=== PATIENT | female | born 1945 | race African-American/Black ===

== ENCOUNTER 2018-01-16 08:35 | Emergency (ER) | payer MEDICAID, MEDICARE, OTHER ==
[~2018-01-16] VITALS: Ht 167.6 cm; Wt 68.5 kg
[~2018-01-16 08:35] MED LIST: ACYCLOVIR400 MG ORAL; AMLODIPINE BESY10 MG PO; ASPIRIN EC81 MG PO; COREG25 MG PO; IMDUR60 MG PO; LIPITOR20 MG PO; LISINOPRIL10 MG PO; LOMOTIL TABLET1 EAC1 PO; NAPROXEN250 M1 PO; NORCO 5-325 TA1 EAC1 ORAL; OMEPRAZOLE20 M2 ORAL; SPIRIVA INHALE1 PUFF INH; SPIRIVA18 MCG INH; VENTOLIN HFA18 GM INH; ZOFRAN ODT4 MG ORAL
[2018-01-16 08:57] VITALS: BP 134/70
--- NOTE | 2018-01-16 09:13 | Emergency Room Report ---
History of Present Illness General Chief Complaint: Wound Recheck/Suture Removal Source: Patient, Medical Record Present Illness HPI Patient presents with follow-up of her right knee injury Patient reports that she had an injury approximately 2 weeks ago Was seen at [facility] Has been seen by her primary physician There was a small area that was still not fully healing And patient presents for further evaluation She reports clear discharge Denies any redness denies any pain with touch Patient is applying peroxide and Betadine on a daily basis Allergies: Coded Allergies: No Known Allergies (Unverified , 07/13/12) Patient History Past Medical History: see triage record Pertinent Family History: none Reviewed Nursing Documentation: PMH: Agreed; PSxH: Agreed Nursing Documentation-PMH Past Medical History: No History, Except For Hx Cardiac Problems: Yes - enlarged heart, high cholesterol Hx Hypertension: Yes Hx Pacemaker: No Hx COPD: Yes Hx Cancer: No Hx Gastrointestinal Problems: Yes Hx Neurological Problems: Yes Hx Numbness: Yes - L LEFT. DUE TO SLIPPED DISC IN [place] Review of Systems All Other Systems: negative except mentioned in HPI Physical Exam Vital Signs Date Time Temp Pulse Resp B/P (MAP) Pulse Ox O2 Delivery O2 Flow Rate FiO2 01/16/18 08:41 97.7 60 18 134/70 95 Room Air 97.7 Sp02 EP Interpretation: reviewed, normal General Appearance: well appearing, no apparent distress Head: normocephalic, atraumatic Eyes: bilateral eye PERRL, bilateral eye EOMI ENT: normal pharynx, no angioedema Neck: full range of motion, supple Respiratory: lungs clear Cardiovascular #1: regular rate, rhythm Gastrointestinal: non tender, soft Musculoskeletal: other - Evidence of recent injury to the right knee however freely mobile Neurologic: alert, oriented x3, responsive Skin: other - Area of abrasion on the right knee there is scab formation around most of the area approximately 2 x 2 centimeters just at the patellar region there is a small approximately quarter centimeter by quarter centimeter region at the inferior aspect of the scapula formation, that is draining mild clear fluid no fluctuance, Lymphatic: no adenopathy Medical Decision Making Diagnostic Impression: Primary Impression: Non-healing skin lesion ER Course The area in question appears clear at this time no signs of any cellulitis or abscess There is a [place] of nonhealing I feel the patient is applying excessive amounts of peroxide likely preventing the area from fully scabbing and healing patient had dressing applied appropriately and was encouraged to follow up with her primary physician for continued repeat evaluations Last Vital Signs Date Time Temp Pulse Resp B/P (MAP) Pulse Ox O2 Delivery O2 Flow Rate FiO2 01/16/18 08:57 97.7 78 18 134/70 95 Room Air 97.7 Status: improved Disposition: HOME, SELF-CARE Condition: Improved Additional Instructions: Patient is provided with the discharge instructions notified to follow up with primary doctor in the next 2-3 days otherwise return to the er with any worsening symptoms. Please note that this report is being documented using [employer] technology. This can lead to erroneous entry secondary to incorrect interpretation by the dictating instrument. Yonathan Nichols DO January 16, 2018 09:13
[2018-01-16 09:31] VITALS: BP 134/70
== END 2018-01-16 09:37 | disposition home or self-care (01) ==
LOC: EMR 09:15
DX: L98.8 Other specified disorders of the skin and subcutaneous tissue (principal); Z48.01 Encounter for change or removal of surgical wound dressing; I10 Essential (primary) hypertension; J44.9 Chronic obstructive pulmonary disease, unspecified
CPT/HCPCS: 99281

== ENCOUNTER 2018-07-25 10:18 | Emergency (ER) | payer MEDICAID, MEDICARE, OTHER ==
[~2018-07-25] VITALS: Ht 167.6 cm; Wt 68.9 kg
[2018-07-25] MEDS ORDERED: SPIRIVA INHALE1 PUF1 INH (10:27)
--- NOTE | 2018-07-25 10:36 | Emergency Room Report ---
History of Present Illness General Chief Complaint: Abdominal Pain Source: Patient Present Illness HPI Patient presents with complaints of pain to her left lung Reports that she had a recent cold with cough and congestion and runny nose That seemed to improve however she has some lingering discomfort to the left side in the back area Denies any vomiting or diarrhea denies any shortness of breath patient reports that she had some burning sensation in her epigastric area as well denies any fevers denies any pleurisy Symptoms ongoing for the past 2-3 weeks Denies any peripheral neuropathy denies any weakness Allergies: Coded Allergies: No Known Allergies (Unverified , 07/25/18) Patient History Past Medical History: see triage record Pertinent Family History: none Now: No Reviewed Nursing Documentation: PMH: Agreed; PSxH: Agreed Nursing Documentation-PMH Hx Cardiac Problems: Yes - enlarged heart, high cholesterol Hx Hypertension: Yes Hx Pacemaker: No Hx COPD: Yes Hx Cancer: No Hx Gastrointestinal Problems: Yes Hx Neurological Problems: Yes Hx Numbness: Yes - L LEFT. DUE TO SLIPPED DISC IN [place] Review of Systems All Other Systems: negative except mentioned in HPI Physical Exam Vital Signs Date Time Temp Pulse Resp B/P (MAP) Pulse Ox O2 Delivery O2 Flow Rate FiO2 07/25/18 10:22 97.9 58 20 173/88 95 Room Air Sp02 EP Interpretation: reviewed, normal General Appearance: well appearing, no apparent distress Head: normocephalic, atraumatic Eyes: bilateral eye PERRL, bilateral eye EOMI ENT: hearing grossly normal, normal pharynx, TMs + canals normal, uvula midline Neck: full range of motion, supple, no meningismus, no bony tend Respiratory: lungs clear, normal breath sounds, no rhonchi, no respiratory distress, no retraction, no accessory muscle use Cardiovascular #1: normal peripheral pulses, regular rate, rhythm, no edema, no gallop, no JVD, no murmur Gastrointestinal: normal bowel sounds, non tender, soft, no mass, no organomegaly, non-distended, no guarding, no hernia, no pulsatile mass, no rebound Genitourinary: no CVA tenderness Musculoskeletal: normal inspection Neurologic: oriented x3, responsive, 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, motor strength/ tone normal, sensory intact Psychiatric: mood/affect normal Skin: normal color, no rash, warm/dry, palpation normal Lymphatic: normal inspection, no adenopathy Medical Decision Making Diagnostic Impression: Primary Impression: Cough Additional Impression: Chest pain ER Course Patient is a fairly complex patient with multiple differential to consideration including but not limited to cardiac cardiopulmonary and vascular emergencies Patient's blood work and imaging is normal Patient remains hemodynamically stable The acute ideology of her presentation is not clear at this time however patient remains hemodynamically stable and is appropriate for close outpatient follow-up CBC normal Chemistry normal Rhythm Strip Diag. Results EP Interpretation: yes Rate: 66 Rhythm: NSR, no PVC's, no ectopy Chest X-Ray Diagnostic Results Chest X-Ray Diagnostic Results : Chest X-Ray Ordered: Yes # of Views/Limited/Complete: 1 View Indication: Chest Pain EP Interpretation: Yes Interpretation: no consolidation, no effusion, no pneumothorax, no acute cardiopulmonary disease - Previous elevated hemidiaphragm Impression: No acute disease Electronically Signed by: Yonathan Nichols DO Last Vital Signs Date Time Temp Pulse Resp B/P (MAP) Pulse Ox O2 Delivery O2 Flow Rate FiO2 07/25/18 10:22 97.9 58 20 173/88 95 Room Air Status: improved Disposition: HOME, SELF-CARE Condition: Improved Scripts Mag Hydrox/Al Hydrox/Simeth (MAALOX MAXIMUM STRENGTH SUSP) 355 Ml Oral.susp 10 ML PO BID for 7 Days, ML Prov: Yonathan Nichols DO 07/25/18 Additional Instructions: Patient is provided with the discharge instructions notified to follow up with primary doctor in the next 2-3 days otherwise return to the er with any worsening symptoms. Please note that this report is being documented using [employer] technology. This can lead to erroneous entry secondary to incorrect interpretation by the dictating instrument. Yonathan Nichols DO Jul 25, 2018 10:36
[2018-07-25 10:57] VITALS: BP 149/67
[2018-07-25 11:12] LABS: BASOPHILS % (AUTO) 1.1 % (0.0-2.0); EOSINOPHILS % (AUTO) 2.1 % (0.0-3.0); HEMATOCRIT 47.4 % (37.0-47.0); HEMOGLOBIN 15.3 G/DL (12.0-16.0); LYMPHOCYTES % (AUTO) 42.7 % (20.0-45.0); MEAN CORPUSCULAR VOLUME 90 FL (80-99); MONOCYTES % (AUTO) 9.8 % (1.0-10.0); NEUTROPHILS % (AUTO) 44.3 % (45.0-75.0); PLATELET COUNT 168 K/UL (150-450); RED BLOOD COUNT 5.28 M/UL (4.20-5.40); RED CELL DISTRIBUTION WIDTH 12.7 % (11.6-14.8); WHITE BLOOD COUNT 5.7 K/UL (4.8-10.8)
--- NOTE | 2018-07-25 11:25 | Diagnostic Imaging Report ---
Indication: Chest pain Technique: One view of the chest Comparison: 01/15/2006 Findings: The right hemidiaphragm is elevated. The lungs and pleural spaces are otherwise clear. The heart size is normal. Findings are unchanged Impression: No acute process
[2018-07-25 11:42] LABS: ANION GAP 8 mmol/L (5-15); BLOOD UREA NITROGEN 12 mg/dL (7-18); CALCIUM 9.1 MG/DL (8.5-10.1); CARBON DIOXIDE 28 MMOL/L (21-32); CHLORIDE 108 MMOL/L (98-107); CREATININE 0.8 MG/DL (0.55-1.30); POTASSIUM 3.9 MMOL/L (3.5-5.1); SODIUM 144 MMOL/L (136-145)
[2018-07-25 11:52] LABS: ALANINE AMINOTRANSFERASE 18 U/L (12-78); ALBUMIN 3.6 G/DL (3.4-5.0); ALBUMIN/GLOBULIN RATIO 0.9 (1.0-2.7); ALKALINE PHOSPHATASE 96 U/L (46-116); ASPARTATE AMINO TRANSFERASE 17 U/L (15-37); BILIRUBIN,TOTAL 0.6 MG/DL (0.2-1.0)
[2018-07-25] MEDS ORDERED: MAALOX MAXIMUM355 M1 PO (12:15)
[2018-07-25 12:24] VITALS: BP 143/65
== END 2018-07-25 12:26 | disposition home or self-care (01) ==
LOC: EMR 11:01
DX: R05 Cough (principal); R07.9 Chest pain, unspecified; R09.89 Other specified symptoms and signs involving the circulatory and respiratory systems; I10 Essential (primary) hypertension; J44.9 Chronic obstructive pulmonary disease, unspecified; E78.00 Pure hypercholesterolemia, unspecified
CPT/HCPCS: 36415; 71045; 80053; 83690; 85025; 99284